=== PATIENT | male | born 1995 | race Two or more races ===

== ENCOUNTER 2021-06-05 13:01 | Emergency (ER) | payer SELFPAY ==
[~2021-06-05] VITALS: Ht 180.3 cm; Wt 115.0 kg
--- NOTE | 2021-06-05 13:43 | EKG ---
[facility] [address] [place] [address] Test Date: 2021-06-05 Test Time: 13:08:58 Pat Name: PRAKASH PEOPLES Department: Room: Gender: [employer]: : 1995 Requested By: LEVI GUILLERMO Order Number: [id number] Reading MD: Jeremiah Garcia Measurements Intervals [place] Rate: 89 P: 36 NM: 152 QRS: 39 QRSD: 94 T: 25 QT: 350 QTc: 427 Interpretive Statements SINUS RHYTHM NORMAL ECG RI6.02 No previous ECG available for comparison Electronically Signed On 06-07-2021 13:29:41 CDT by Jeremiah Garcia
--- NOTE | 2021-06-05 13:45 | RAD ---
AP chest. HISTORY: Chest pain AP view was taken of the chest. Lungs are clear. Heart is normal in size. There is no pleural effusio n. IMPRESSION: 1. No acute chest disease. Electronically signed by: Gus Page MD (06/05/2021 1:43 PM) [facility]
[2021-06-05 13:55] LABS: CALCIUM 9.9 mg/dL (8.5-10.1); CREATININE 1.1 mg/dL (0.7-1.3); GFR 82.2; POTASSIUM 3.9 mmol/L (3.5-5.1)
[2021-06-05 14:00] LABS: INFLUENZA A PATIENT NEGATIVE (NEGATIVE); INFLUENZA B PATIENT NEGATIVE (NEGATIVE)
[2021-06-05 14:01] LABS: ALBUMIN 4.6 g/dL (3.4-5.0); ALBUMIN/GLOBULIN RATIO 1.2 (1.0-1.7); MAGNESIUM 2.2 mg/dL (1.8-2.4); TOTAL BILIRUBIN 0.6 mg/dL (0.2-1.0); TOTAL PROTEIN 8.6 g/dL (6.4-8.2)
[2021-06-05 14:02] LABS: BASO # 0.1 x10^3/uL (0.0-0.2); BASO % 1 % (0-3); EOS # 0.1 x10^3/uL (0.0-0.7); EOS % 1 % (0-3); HEMATOCRIT 51.2 % (39.0-53.0); HEMOGLOBIN 17.7 g/dL (13.0-17.5); LYMPH # 4.4 x10^3/uL (1.0-4.8); LYMPH % 38 % (24-48); MEAN CORPUSCULAR HEMOGLOBIN 30 pg (25-35); MEAN CORPUSCULAR HGB CONC 35 g/dL (31-37); MEAN CORPUSCULAR VOLUME 88 fL (79-100); MONO # 0.8 x10^3/uL (0.0-1.1); MONO % 7 % (0-9); NEUT # 6.2 x10^3/uL (1.8-7.7); NEUT % 54 % (31-73); PLATELET COUNT 257 x10^3/uL (140-400); RED BLOOD COUNT 5.81 x10^6/uL (4.30-5.70); RED CELL DISTRIBUTION WIDTH 13.7 % (11.5-14.5); WHITE BLOOD COUNT 11.5 x10^3/uL (4.0-11.0)
[2021-06-05] MEDS ORDERED: KETOROLAC 30 MG/ML VIAL. IVP ONE (14:30)
[2021-06-05] MEDS ORDERED: IV NORMAL SALINE 1000ML BAG 1,000 ML IV ONE (14:30)
[2021-06-05] MEDS ORDERED: IOHEXOL 350 MG/ML 100 ML VIAL. IV ONE (14:45)
--- NOTE | 2021-06-05 14:49 | RAD ---
EXAM: CT head without contrast INDICATION: Syncopal episode COMPARISON: None TECHNIQUE: Axial CT imaging through the head without intravenous contrast. Sagittal and coronal refor mats were obtained. One or more of the following individualized dose reduction techniques were utilized for this examinat ion: 1. Automated exposure control 2. Adjustment of the mA and/or kV according to patient size 3. Use of iterative reconstruction technique. FINDINGS: The ventricles and sulci are normal. Fletcher-white matter differentiation is maintained. There is no in tracranial hemorrhage, acute infarct, or mass lesion. Basal cisterns are clear. The skull and scalp are intact. Paranasal sinuses and mastoid air cells are clear. Globes and orbits are intact. IMPRESSION: No acute intracranial abnormality. Electronically signed by: Blanca Olsen MD (06/05/2021 2:46 PM) [id number]
--- NOTE | 2021-06-05 15:50 | RAD ---
CTA CHEST_ABDOMEN_AND PELVIS History: Stabbing, tearing chest pain. Rule out dissection. Comparison: None. Technique: CT angiogram of the chest, abdomen and pelvis with intravenous contrast. Postprocessing pe rformed with rotating 3-D surface renderings. Findings: The aorta is normal in caliber with two-vessel morphology. No mural hematoma, dissection or aneurysm. The central pulmonary arteries are patent without large or central pulmonary embolism. The esophagus and thyroid are unremarkable. No mediastinal adenopathy. Motion artifact limits evaluation of the bradley gs. No consolidation, effusion or pneumothorax. No acute osseous abnormality in the chest. The liver, gallbladder, pancreas, spleen, adrenal glands, and kidneys are unremarkable. The gastroint estinal tract is within normal limits. The bladder and prostate are unremarkable. No free intraperito marleni air or fluid. Normal caliber of the abdominal aorta with widely patent branches. No aneurysm. No intra-abdominal adenopathy. The soft tissues are unremarkable. No acute osseous abnormality. Impression: 1. No acute findings in the chest abdomen and pelvis. No aortic dissection, aneurysm or mural hemato ma identified ------ Exposure: One or more of the following individualized dose reduction techniques were utilized for thi s examination: 1. Automated exposure control 2. Adjustment of the mA and/or kV according to patient size 3. Use of iterative reconstruction technique. Electronically signed by: Christofer Love MD (06/05/2021 3:48 PM) [id number]
--- NOTE | 2021-06-05 17:50 | PHYS DOC ---
Past Medical History Past Surgical History: No Surgical History Smoking Status: Light Tobacco Smoker Alcohol Use: None General Adult EDM: Chief Complaint: CHEST PAIN HPI: HPI: Patient is a 25-year-old patient reporting chest pain since last week. Patient reports sudden onset of left-sided stabbing chest pain that he rates at a 9 to a 10 out of 10. Patient states he was laying down watching TV when it started. Patient denies taking any pain medications or tried nonpharmacological pain relief methods prior to arrival to the emergency department. Patient states his pain has moved to the left side of his chest from his sternal chest reporting a stabbing tearing sensation. Patient reports a family history of sudden cardiac , reports his grandmother and grandfather on his father's side of heart attacks, his grandmother and grandfather on his mother side both have hypertension, cardiac disease, and type 2 diabetes. Patient denies diaphoretic episodes, denies shortness of breath, denies syncopal or near syncopal episodes. Patient states he has never seen a primary care physician, does not take p rescription medications at home, does not take [id number]-rbu-[id number] medications. Patient has not been vaccinated for the flu virus this season, has not been vaccinated for the COVID-19 virus. Review of Systems: Review of Systems: 14 body systems of review of systems have been reviewed. See HPI for pertinent positives and negative responses, otherwise all other systems are negative, nonpertinent or noncontributory. Constitutional: Negative except as outlined in HPI above. Skin: Negative except as outlined in HPI above. Eyes: Negative except as outlined in HPI above. HENT: Negative except as outlined in HPI above. Respiratory: Negative except as outlined in HPI above. Cardiovascular: Negative except as outlined in HPI above. GI: Negative except as outlined in HPI above. : Negative except as outlined in HPI above. Musculoskeletal: Negative except as outlined in HPI above. Integument: Negative except as outlined in HPI above. Neurologic: Negative except as outlined in HPI above. Endocrine: Negative except as outlined in HPI above. Lymphatic: Negative except as outlined in HPI above. Psychiatric: Negative except as outlined in HPI above. Heart Score: C/O Chest Pain: Yes HEART Score for Chest Pain: HEART Score for Chest Pain Response (Comments) Value History Slighlty/Non-Suspicious 0 ECG Normal 0 Age < 45 0 Risk Factors 1 or 2 Risk Factors 1 Troponin < Normal Limit 0 Total 1 Risk Factors: Risk Factors: DM, Current or recent (<one month) smoker, HTN, HLP, family history of CAD, obesity. Risk Scores: Score 0 - 3: 2.5% MACE over next 6 weeks - Discharge Home Score 4 - 6: 20.3% MACE over next 6 weeks - Admit for Clinical Observation Score 7 - 10: 72.7% MACE over next 6 weeks - Early Invasive Strategies Current Medications: Current Medications Medications (Trade) Dose Ordered Sig/Ken Start Time Stop Time Status Last Admin Dose Admin Iohexol (Omnipaque 350 Mg/ml) 100 ml 1X ONCE 06/05/21 14:45 06/05/21 15:01 DC 06/05/21 14:49 100 ML Ketorolac Tromethamine (Toradol 30mg Vial) 30 mg 1X ONCE 06/05/21 14:30 06/05/21 15:01 DC 06/05/21 15:19 30 MG Sodium Chloride 1,000 ml @ 1,000 mls/hr 1X ONCE 06/05/21 14:30 06/05/21 15:29 DC 06/05/21 15:20 1,000 MLS/HR Allergies: Allergies: Allergies Coded Allergies Type Severity Reaction Last Updated Verified No Known Drug Allergies 06/05/21 No Physical Exam: PE: Constitutional: Well developed, well nourished, no acute distress, non-toxic appearance. 25-year-old male in no apparent distress. HENT: Normocephalic, atraumatic. Eyes: Conjunctiva normal, no discharge. Neck: Normal range of motion, no stridor. Cardiovascular: No cyanosis appreciated, distal cap refill less than 2 seconds. Heart sounds S1-S2 auscultation, regular rate and rhythm. Lungs & Thorax: Patient is in no respiratory distress, no audible adventitious lung sounds appreciated. Lung sounds are clear to auscultation all lung sams, there is pain to palpation over the left anterior thorax without subcu air or crepitus, there is no skin discoloration or ecchymotic areas of the chest. Abdomen: Nontender, no abnormalities noted. Skin: Warm, dry, no erythema, no rash. Back: No tenderness, no deformities. Extremities: No tenderness, no cyanosis, no clubbing, ROM intact, no edema. Neurologic: Alert and oriented X 3, normal motor function, normal sensory function, no focal deficits noted. Psychologic: Affect normal, judgement normal, mood normal. Current Patient Data: Labs: Laboratory Tests Test 06/05/21 13:28 06/05/21 13:33 06/05/21 15:32 White Blood Count 11.5 x10^3/uL (4.0-11.0) H Red Blood Count 5.81 x10^6/uL (4.30-5.70) H Hemoglobin 17.7 g/dL (13.0-17.5) H Hematocrit 51.2 % (39.0-53.0) Mean Corpuscular Volume 88 fL (79-100) Mean Corpuscular Hemoglobin 30 pg (25-35) Mean Corpuscular Hemoglobin Concent 35 g/dL (31-37) Red Cell Distribution Width 13.7 % (11.5-14.5) Platelet Count 257 x10^3/uL (140-400) Neutrophils (%) (Auto) 54 % (31-73) Lymphocytes (%) (Auto) 38 % (24-48) Monocytes (%) (Auto) 7 % (0-9) Eosinophils (%) (Auto) 1 % (0-3) Basophils (%) (Auto) 1 % (0-3) Neutrophils # (Auto) 6.2 x10^3/uL (1.8-7.7) Lymphocytes # (Auto) 4.4 x10^3/uL (1.0-4.8) Monocytes # (Auto) 0.8 x10^3/uL (0.0-1.1) Eosinophils # (Auto) 0.1 x10^3/uL (0.0-0.7) Basophils # (Auto) 0.1 x10^3/uL (0.0-0.2) D-Dimer (Humera) < 0.27 ug/mlFEU Sodium Level 138 mmol/L (136-145) Potassium Level 3.9 mmol/L (3.5-5.1) Chloride Level 101 mmol/L (98-107) Carbon Dioxide Level 24 mmol/L (21-32) Anion Gap 13 (6-14) Blood Urea Nitrogen 12 mg/dL (8-26) Creatinine 1.1 mg/dL (0.7-1.3) Estimated GFR (Cockcroft-Gault) 82.2 BUN/Creatinine Ratio 11 (6-20) Glucose Level 111 mg/dL (70-99) H Calcium Level 9.9 mg/dL (8.5-10.1) Magnesium Level 2.2 mg/dL (1.8-2.4) Total Bilirubin 0.6 mg/dL (0.2-1.0) Aspartate Amino Transferase (AST) 17 U/L (15-37) Alanine Aminotransferase (ALT) 42 U/L (16-63) Alkaline Phosphatase 103 U/L (46-116) Creatine Kinase 93 U/L (39-308) Troponin I High Sensitivity 6 ng/L (4-75) 5 ng/L (4-75) Total Protein 8.6 g/dL (6.4-8.2) H Albumin 4.6 g/dL (3.4-5.0) Albumin/Globulin Ratio 1.2 (1.0-1.7) Lipase 45 U/L (73-393) L Influenza Type A Antigen Negative (NEGATIVE) Influenza Type B Antigen Negative (NEGATIVE) SARS-CoV-2 Antigen (Rapid) Negative (NEGATIVE) Laboratory Tests 06/05/21 13:28 Laboratory Tests 06/05/21 13:28 Vital Signs: Vital Signs Date Time Temp Pulse Resp B/P (MAP) Pulse Ox O2 Delivery O2 Flow Rate FiO2 06/05/21 15:20 70 16 138/78 (98) 98 06/05/21 13:30 98.1 Room Air 98.1 EKG: EKG: EKG performed at 1308 by ED nursing staff shows a normal sinus rhythm without other ectopy, heart rate 89 bpm, DC interval 0.152, QTc interval 0.427, no acute STEMI, no ACS, no acute ischemia appreciated, EKG interpreted by ED attending physician Dr. Menjivar. Radiology/Procedures: Radiology/Procedures: REASON: Syncopal episode PROCEDURE: CT HEAD WO CONTRAST EXAM: CT head without contrast INDICATION: Syncopal episode COMPARISON: None TECHNIQUE: Axial CT imaging through the head without intravenous contrast. Sagittal and coronal reformats were obtained. One or more of the following individualized dose reduction techniques were ut ilized for this examination: 1. Automated exposure control 2. Adjustment of the mA and/or kV according to patient size 3. Use of iterative reconstruction technique. FINDINGS: The ventricles and sulci are normal. Fletcher-white matter differentiation is maintained. There is no intracranial hemorrhage, acute infarct, or mass lesion. Basal cisterns are clear. The skull and scalp are intact. Paranasal sinuses and mastoid air cells are clear. Globes and orbits are intact. IMPRESSION: No acute intracranial abnormality. Electronically signed by: Blanca Olsen MD (06/05/2021 2:46 PM) [id number] REASON: Chest pain PROCEDURE: CHEST AP ONLY AP chest. HISTORY: Chest pain AP view was taken of the chest. Lungs are clear. Heart is normal in size. There is no pleural effusion. IMPRESSION: 1. No acute chest disease. Electronically signed by: Gus Page MD (06/05/2021 1:43 PM) [facility] REASON: Stabbing tearing chest pain PROCEDURE: CT ANGIO CHEST ABD PELVIS CTA CHEST_ABDOMEN_AND PELVIS History: Stabbing, tearing chest pain. Rule out dissection. Comparison: None. Technique: CT angiogram of the chest, abdomen and pelvis with intravenous contrast. Postprocessing performed with rotating 3-D surface renderings. Findings: The aorta is normal in caliber with two-vessel morphology. No mural hematoma, dissection or aneurysm. The central pulmonary arteries are patent without large or central pulmonary embolism. The esophagus and thyroid are unremarkable. No mediastinal adenopathy. Motion artifact limits evaluation of the lungs. No consolidation, effusion or pneumothorax. No acute osseous abnormality in the chest. The liver, gallbladder, pancreas, spleen, adrenal glands, and kidneys are unrema rkable. The gastrointestinal tract is within normal limits. The bladder and prostate are unremarkable. No free intraperitoneal air or fluid. Normal caliber of the abdominal aorta with widely patent branches. No aneurysm. No intra-abdominal adenopathy. The soft tissues are unremarkable. No acute os seous abnormality. Impression: 1. No acute findings in the chest abdomen and pelvis. No aortic dissection, aneurysm or mural hematoma identified ------ Exposure: One or more of the following individualized dose reduction techniques were utilized for this examination: 1. Automated exposure control 2. Adjustment of the mA and/or kV according to patient size 3. Use of iterative reconstruction technique. Electronically signed by: Christofer Love MD (06/05/2021 3:48 PM) [id number] Course & Med Decision Making: Course & Med Decision Making Pertinent Labs and Imaging studies reviewed. (See chart for details) 25-year-old male, vital signs reviewed, presents emerged from concerning left- sided tearing chest pain for the past week. Physical examination is concerning for musculoskeletal chest wall pain, related to patient's history of sudden cardiac will order EKG, twelve-lead EKG, chest x-ray, CBC, CMP, D-dimer, lipase, magnesium level, high-sensitivity troponin I, rapid flu and Covid testing. IV normal saline, IV Toradol. Patient's labs are unremarkable, patient did have near syncopal episode and room with nurse per patient's primary nurse, vital signs remained stable, will order CT head without contrast, related to patient's ongoing complaint of tearing in chest, will order CT angio chest, abdomen and pelvis. Chest x-ray, CT head, CT angio chest, abdomen pelvis negative for acute process, negative for large vessel aneurysm within the thorax, negative for acute process of the brain. All patient's labs are within normal limits. Discussed all findings with patient, patient reports pain medication helped and he no longer has chest pain. Discussed the use of ibuprofen for any return of chest pain, strict follow-up with primary care soon, will give list of area health care clinics and primary care clinics. Return to ER precautions and concerns were discussed. Patient gave verbal understanding of and is amenable to ED discharge planning. Discussed with the patient all findings and diagnostic testing as well as the need to follow-up with their primary care provider for further evaluation and treatment or return to the ED if any new or worsening symptoms. Strict return precautions were also discussed at length, the patient voiced understanding and agreement with the discharge planning. The patient was nontoxic in appearance, in no apparent distress, and hemodynamically stable at the time of disposition. Dragon Disclaimer: TuneUp Disclaimer: This electronic medical record was generated, in whole or in part, using a voice recognition dictation system. Departure Departure Impression: Primary Impression: Chest wall pain Disposition: HOME / SELF CARE / HOMELESS Condition: GOOD Referrals: NO PCP (PCP) Patient Instructions: Chest Wall Pain Additional Instructions: You were seen in the emergency department today for chest pain. You also had a near syncopal episode in the emergency department. CT of your head did not show any concerning findings, CT of your chest and abdomen pelvis did not show any concerning findings. Your EKG was in normal limits, your lab work was nonconcerning. You were given medication called Toradol for pain. This seemed to relieve your pain. You may continue to take [id number] ibuprofen for any return of the chest wall pain. Please follow-up with your primary care doctor for ongoing pain management. I have given you a list attached to this document of area health care providers and clinics for you to establish primary care, please call tomorrow for the soonest appointment. Thank you for visiting our Emergency Department. It was a pleasure taking care of you today in the emergency department and we appreciate you trusting us with your care. If any additional problems come up don't hesitate to return to visit us. Please follow up with your primary care provider so they can plan additional care if needed and know about the problem that you had. If symptoms worsen come back to the Emergency Department. Any concerning symptoms that start such as chest pain, shortness of air, weakness or numbness on one side of the body, running high fevers or any other concerning symptoms return to the ER. [facility] [address] [place] [address] [facility] [address] [place] [address] [facility] CARE [address] [facility] [place] [place] [address] [facility] [address] [place] [address] [facility] [address] [place] [address] [facility] [address] [place] [address] [facility] [address] [place] [address] [facility] [address] [place] [address] [facility] [address] [place] [address] [facility] [address] [place] [address] LEVI GUILLERMO APRN Jun 05, 2021 17:50
[2021-06-05 18:21] VITALS: BP 144/78
== END 2021-06-05 18:26 | disposition home or self-care (01) ==
LOC: ER 13:01
DX: R07.2 Precordial pain (principal); R10.9 Unspecified abdominal pain; Z72.0 Tobacco use; Z20.822 Contact with and (suspected) exposure to COVID-19
CPT/HCPCS: 36415; 70450; 71045; 71275; 74174; 80053; 82550; 83690; 83735; 84484; 85025; 85379; 87428; 93005; 96361; 96374; 99285; J1885; J7030; Q9967